=== PATIENT | female | born 1975 | race Asian ===

== ENCOUNTER → 2023-08-13 12:49 | Outpatient (CLI) | payer OTHER, SELFPAY ==
--- NOTE | ~2023-08-13 | MR_ITS ---
MRI of the left hip Clinical history: Pain Technique: Coronal T1-weighted, T2-weighted, and proton-density fat-sat images, and axial T1-weighted and proton-density fat-sat images were acquired through the pelvis. Coronal T2-weighted images and c oronal, axial, and sagittal proton-density fat-sat images were acquired through the left hip. Findings: There is no fracture, avascular necrosis, transient osteoporosis of either hip. Bone marrow signals the proximal femora and visualized pelvic bones are unremarkable. Bilateral hip joint spaces are preserved. There is probable moderate diffuse chondral malacia the left hip joint. There is mini mal chondral thinning of the right hip joint. Small left hip joint effusion present. No right hip joel nt effusion. No left acetabular labral tear evident. Visualized musculature about the pelvis and left hip is unremarkable. No muscle atrophy or edema. Vis ualized tendons are intact. No evidence for bursitis. No soft tissue mass or fluid collection seen. 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 Minimal chondromalacia of the right hip joint. Reviewed, dictated and finalized at location . ICE ORDER DISPATCHER
== END ==
PROVIDERS: PCP Nurse Practitioner; Visit Provider Nurse Practitioner
DX: M94.252 Chondromalacia, left hip (principal); M94.251 Chondromalacia, right hip; M25.452 Effusion, left hip
CPT/HCPCS: 73721

== ENCOUNTER 2024-10-29 15:31 | Outpatient (CLI) | payer OTHER, SELFPAY ==
--- NOTE | ~2024-10-29 | XR_ITS ---
EXAMINATION: XR chest 2V Exam Date/Time: 10/29/2024 16:15 HARDWOOD FLOOR REFINISHER HISTORY: OLECRANON Comparison: None. RESULT: Lines, tubes, and devices: None. Lungs and pleura: Low volumes with crowding, otherwise clear. Cardiomediastinal silhouette: Stable. Other: No acute osseous or upper abdominal finding. IMPRESSION: No acute cardiopulmonary process. Reviewed, dictated and finalized at location K. WOOD FLOOR REFINISHER
--- NOTE | ~2024-10-29 | XR_ITS ---
EXAM: XR elbow RT min 3V DATE: 10/29/2024 16:37 HISTORY: OLECRANON . COMPARISON: None available. FINDINGS: Normal mineralization. No fracture or dislocation. No lytic or blastic lesion. Joint space s are maintained. No erosion or periosteal change. Soft tissues within normal limits. IMPRESSION: No acute osseous finding in the right elbow. Reviewed, dictated and finalized at location K. ING PROCESS WORKER
--- NOTE | ~2024-10-29 | XR_ITS ---
EXAM: XR thoracic spine 3V DATE: 10/29/2024 16:37 HISTORY: OLECRANON . COMPARISON: None available. FINDINGS: Mild scoliosis Vertebral body alignment intact. Vertebral body heights preserved. Mild mult ilevel disc space narrowing and marginal osteophytosis. No traumatic malalignment or fracture. Visual ized lung parenchyma is clear. IMPRESSION: Mild multilevel degenerative disc disease. Reviewed, dictated and finalized at location K. TRY GRADER
--- OUTSIDE RECORDS SUMMARY | 2024-10-29 16:23 | XMS_ITS | Clinical Summary ---
Author Organization [facility] Address [address] [place] [address] Care Team Providers Care Elevator Repairer Apprentice Name Role Phone John Vincent MD Primary Care Provider + Christiano Kay MD Unavailable [phone] Allergies No known active allergies Medications levothyroxine (SYNTHROID) 112 mcg tablet Take 1 tablet (112 mcg total) by mouth tack picker before breakfast Active atorvastatin (LIPITOR) 20 mg tablet Take 1 tablet (20 mg total) by mouth daily 2 Active Ozempic 1 mg/dose (4 mg/3 mL) pen injector injection INJECT 1MG ONCE A WEEK FOR DIABETES 3 Active Mirena IUD 4 Active Active Problems Problem Noted Date Diagnosed Date Epigastric pain 04/15/2021 Assessment & Plan (04/15/2021 10:45 AM CDT): egd Gastroesophageal reflux disease 04/15/2021 Overview (04/15/2021): Added automatically from request for surgery [id number] Encounter for screening colonoscopy 04/15/2021 Overview (04/15/2021): Added automatically from request for surgery [id number] Fibrocystic breast changes of both breasts 05/30 Abnormal findings on diagnostic imaging of breas t 03/08/2015 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 (01/03/2017): High risk HPV infection Resolved Problems Problem Noted Date Diagnosed Date Resolved Date Menorrhagia with regular cycle 02/25/2020 03/26/2020 Overview (02/25/2020): Added automatically from request for surgery [id number] Encounters Date Type Department Care Team Description 09/29/2024 11:18 AM CUSTOMER CARE COORDINATOR - 09/29/2024 11:59 PM CUSTOMER CARE COORDINATOR Hospital Encounter [facility] - Breast Imaging [address] [place] [address] [address] [place] [address] Fibrocystic breast changes of both breasts Discharge Disposition: Discharge to home or self care 09/29/2024 11:15 AM CUSTOMER CARE COORDINATOR Office Visit [facility] [address] [place] [address] 8 [place] [address] Jamee Lagunas NP Fibrocystic breast changes of both breasts (Primary Dx); Encounter for screening mammogram for malignant neoplasm of breast from Last 3 Months Surgical History Surgery Date Site/Laterality Comments OTHER SURGICAL HISTORY 10/01/1992 - 09/30/1993 Abnormal pap: Cryotherapy of the cervix OTHER SURGICAL HISTORY HR HPV positive: HR HPV still positive 2011 SHOULDER SURGERY right shoulder surgery HYSTEROSCOPY W/ ENDOMETRIAL ABLATION 11/11/2019 Yadi DILATION AND CURETTAGE OF UTERUS 11/11/2019 COLONOSCOPY 05/26/2021 Medical History Medical History Date Comments History of abnormal cervical Papanicolaou smear 1992 Abnormal pap Hx Other Medical Mild hyperchole sterolemia Hx Other Medical 2010 HR HPV positive Disorder of thyroid Thyroid dise ase PONV (postoperative nausea and vomiting) Hypothyroidism GERD (gastroesophageal reflux disease) Diabetes (HCC) Family History Medical History Relation Name Comments Ureter Cancer Brother Coronary artery disease Father Gaye nary artery disease; Hypertension Father Hypertension; Thyroid disease Sister Thyroid dise ase; Relation Name Status Comments Brother Father Sister Social History Tobacco Use Types Packs/Day Years Used Date Smoking Tobacco: Never Smokeless Tobacco: Never Tobacco Cessation:Counseling Given: Not Answered Alcohol Use Standard Drinks/Week Comments No 0 (1 standard drink = 0.6 oz pur e alcohol) AUDIT-C Answer Date Recorded Q1: How often do you have a drink containing alc ohol? Monthly or less 04/15/2021 Q2: How many drinks containi ng alcohol do you have on a typical day when you are drinking? 1 or 2 04/15/2021 Q3: How often do you have si x or more drinks on one occasion? Never 04/15/2021 PHQ-2 Answer Date Recorded PHQ-2 Total Score (If total score is 3 or more points, staff should administer the PHQ-9) 0 02/04/2024 Comments No Sex and Gender Information Value Date Recorded Sex Assigned at Not on file Legal Sex Female 1:52 AM CUSTOMER CARE COORDINATOR Gender Identity Not on file Sexual Orientation Not on file Obstetrics History Para Term AB IAB SAB Ectopic Multiple Livin g Live Births 4 3 3 0 1 0 1 0 0 3 3 Date Outcome GA Total Labor Labor/2nd/3rd Weight Sex Type Anes PTL Inez A1 A5 Name Clin SAB 8 Term M Vag-S pont Living 0 Term M Vag-S pont Living 9 Term M Vag-S pont Living Last Filed Vital Signs Vital Sign Reading Time Taken Comments Blood Pressure 126/80 05/13/2024 8:25 AM CDT Pulse 70 05/26/2021 12:24 PM CDT Temperature 36.8 ??C (98.2 ??F) 05/26/2021 12:24 PM C DT Respiratory Rate 18 05/26/2021 12:24 PM CDT Oxygen Saturation 99% 05/26/2021 12:24 PM CDT Inhaled Oxygen Concentration - - Weight 98 kg (216 lb) 09/29/2024 11:35 AM CUSTOMER CARE COORDINATOR Height 160 cm (5' 2.99 ) 09/29/2024 11:35 AM CUSTOMER CARE COORDINATOR Body Mass Index 38.27 09/29/2024 11:35 AM CUSTOMER CARE COORDINATOR Plan of Treatment Health Maintenance Due Date Last Done Comments Hepatitis C Screening 1975 DTaP/Tdap/Td Vaccine (1 - Tdap) 1986 Hepatitis B Screening 1993 Covid-19 Vaccine (2 - season) 2024 07/11/2021 Influenza Vaccine (#1) 2024 Cervical Cancer Screening 02/03/20254, 01/15/2023, 12/30/2021, Additional history exists Depression Screening 02/03/2025 02/04/2024, 01/15/2023, 12/30/2021, Additional history exists Regular Well Visit/Exam 18-64 02/03/2025 02/04/2024, 01/15/2023, 12/30/2021, Additional history exists Breast Cancer Screening-Mammogram 09/29/2025 09/29/2024, 09/17/2023, 09/01/2022, Additional history exists Colon Cancer Screening-Colonoscopy 05/26/2031 05/26/2021 Pneumococcal vaccine <65 Aged Out No longer eligible based on patient's age to complete this topic Procedures Procedure Name Priority Date/Time Associated Diagnosis Comments SCREENING MAMMOGRAM BILATERAL W BRETT Schedule Routine, Read Routine (OP Routine) 09/29/2024 12:27 PM CUSTOMER CARE COORDINATOR Fibrocystic breast changes of both breasts PAP AND HPV, REFLEX TO HPV GENOTYPES Routine 02/04/2024 3:16 PM CDT Well woman exam COLONOSCOPY 05/26/2021 11:23 AM CDT from Last 3 Months or Most Recently Relevant to Health Maintenance Results * Screening Mammogram Bilateral W Brett (09/29/2024 12:27 PM CUSTOMER CARE COORDINATOR) Anatomical Region Laterality Modality Breast Bilateral Mammography Narrative 09/30/2024 9:12 AM CUSTOMER CARE COORDINATOR Mammogram Technique: Bilateral Digital Breast Tomosynthesis, Bilateral C-view 2D Screening mammogram. ??Views obtained: ??bilateral craniocaudal and bilateral mediolateral oblique. ??Computer Aided Detection was performed. Mammogram Findings: The present examination has been compared to prior imaging studies performed at [facility] on 08/19/2021, 09/01/2022 and 09/17/2023. The breasts are heterogeneously dense, which may obscure small masses. There is no suspicious abnormality in either breast. Impression: There is no mammographic evidence of malignancy. Annual screening mammography is recommended. If supplemental screening is desired, breast MRI would be recommended in this patient with heterogeneously dense breasts. OVERALL FINAL ASSESSMENT: BI-RADS CATEGORY 1: ??Negative. Procedure Note Noni Pabon MD - 09/30/2024 Mammogram Technique: Bilateral Digital Breast Tomosynthesis, Bilateral C-view 2D Screening mammogram. Views obtained: bilateral craniocaudal and bilateral mediolateral oblique. Computer Aided Detection was performed. Mammogram Findings: The present examination has been compared to prior imaging studies performed at [facility] on 08/19/2021, 09/01/2022 and 09/17/2023. The breasts are heterogeneously dense, which may obscure small masses. There is no suspicious abnormality in either breast. Impression: There is no mammographic evidence of malignancy. Annual screening mammography is recommended. If supplemental screeningis desired, breast MRI would be recommended in this patient with heterogeneously dense breasts. OVERALL FINAL ASSESSMENT: BI-RADS CATEGORY 1: Negative. Jamee Lagunas NP IMG MAMMO PROCEDURES Final Result * Pap and HPV, reflex to HPV Genotypes (02/04/2024 3:16 PM CDT) Clinical indication Comment [facility] - 01 Comment:NEGATIVE FOR INTRAEP ITHELIAL LESION OR MALIGNANCY. Specimen adequacy: Comment [facility] - 01 Comment: Satisfactory for evaluation. ??Endocervical and/or squamous metaplastic cells (endocervical component) are present. Clinician provided ICD10 Comment [facility] - 01 Comment:Z01.419 Performed by Comment [facility] - 01 Comment:Maryjane Arroyo, Cytote chnologist (ASCP) . . [facility] - 01 Note: Comment [facility] - 01 Comment: The Pap smear is a screening test designed to aid in the detection of premalignant and malignant conditions of the uterine cervix. ??It is not a diagnostic procedure and should not be used as the sole means of detecting cervical cancer. ??Both false-positive and false-negative reports do occur. Test methodology Comment [facility] - 01 Comment: This liquid based ThinPrep(R) pap test was screened with the use of an image guided system. HPV Aptima Negative Negative [facility] 02 Comment: This nucleic acid amplification test detects fourteen high-risk HPV types (16,18,31,33,35,39,45,51,52,56,58,59,66,68) without differentiation. HPV Genotype Reflex Comment [facility] - 01 Comment:Criteria not met, HP V Genotype not performed. Thin prep 02/04/2024 3:16 PM CDT 02/04/2024 Narrative [facility] - 02/07/2024 10:14 AM CDT Performed at: ??01 - [facility] [address] ??[id number] Research Methodologist: Lily Hodgson MD, Phone: ??[phone] Performed at: ??02 - [facility] ??[id number] Research Methodologist: Lily Hodgson MD, Phone: ??[phone] Specimen Comment: No. of containers..01 ThinPrep Vial Christiano Kay MD LAB CYTOLOGY ORDERABLES Fi nal Result [facility] - 01 [facility] 02 * COLONOSCOPY (05/26/2021 11:23 AM CDT) Anatomical Region Laterality Modality Other Narrative Procedure Note Say Cerrato MD - 05/26/2021 11:23 AM CDT [facility] Patient Name: Lisa Callahan Procedure Date: 05/26/2021 11:23 AM Date of : 1975 Admit Type: Outpatient Age: 46 Gender: Female Attending MD: Say Cerrato M.D. Room: [facility]COPY ROOM 2 Note Status: Finalized Patient Profile: Refer to note in patient chart for documentation of history and physical. Procedure: Colonoscopy Indications: Screening for colorectal malignant neoplasm, Thisis the patient's first colonoscopy Referring MD: John Vincent M.D. Providers: Say Cerrato M.D. Impression: - Hemorrhoids found on perianal exam. - The entire examined colon is normal. - No specimens collected. Recommendation: - Discharge patient to home. - Resume previous diet. - Continue present medications. - Repeat colonoscopy in 10 years for screening purposes. - Return to primary care physician as previously scheduled. Medicines: Propofol per Anesthesia Complications: No immediate complications. Estimated Blood Loss: Estimated blood loss: none. Procedure: Pre-Anesthesia Assessment: - This assessment was completed [Time ofAssessment] prior to the administration of sedation. The benefits, risks and alternatives of theprocedure and sedation were discussed and informed consentwas obtained. All questions were answered. Please referto the signed informed consent document in the medical record. The scope was passed under direct vision.The Colonoscope [id number] was introducedthrough the anus and advanced to the the cecum, identifiedby appendiceal orifice and ileocecal valve. The bowel preparation used was Miralax via single dose instruction. The bowel preparation used wasbisacodyl tablets via single dose instruction. Thecolonoscopy was performed without difficulty. The patient tolerated the procedure well. The quality of thebowel preparation was good. Findings: Hemorrhoids were found on perianal exam. The colon (entire examined portion) appeared normal. Electronically signed by Say Cerrato M.D. Say Cerrato M.D. 05/26/2021 11:59:16 AM Number of Addenda: 0 Note Initiated On: 05/26/2021 11:23 AM Procedure Code(s): --- Professional --- G0121, Colorectal cancer screening; colonoscopy on individual not meeting criteria for high risk Diagnosis Code(s): --- Professional --- K64.9, Unspecified hemorrhoids Z12.11, Encounter for screening for malignant neoplasm of colon CPT copyright 2019 [employer]. All rights reserved. The codes documented in this report are preliminary and upon head operator sulfide reviewmay be revised to meet current compliance requirements. Recognized by the [place] [employer] for promoting quality in endoscopy Say Cerrato MD ENDOSCOPY PROCEDURES Final Re sult from Last 3 Months or Most Recently Relevant to Health Maintenance Insurance [facility] [address] [facility] Advance Directives For more information, please contact: [phone] * Full Code (Latest Code Status on File) Date Activated Date Inactivated Comments 05/26/2021 9:57 AM 05/26/2021 4:46 PM * Full Code Date Activated Date Inactivated Comments 05/26/2021 9:57 AM 05/26/2021 9:57 AM Care Teams Elevator Repairer Apprentice Relationship Specialty Start Date End Date John Vincent MD [address] [place] [address] PCP - General Internal Medicine 06/10/19 Christiano Kay MD [address] [facility] [address] [place] [address] Private Tutor Obstetrics and Gynecology 03/10/20
--- OUTSIDE RECORDS SUMMARY | 2024-10-29 16:23 | XMS_ITS | Referral Summary ---
Author Organization [facility] Address [address] [place] [address] Care Team Providers Care Vice President Investor Relations Name Role Phone John Vincent MD Primary Care Provider + Christiano Kay MD Unavailable [phone] Encounters Date Type Department Care Team Description 09/29/2024 11:18 AM GEOGRAPHIC INFORMATION SYSTEMS ANALYST - 09/29/2024 11:59 PM GEOGRAPHIC INFORMATION SYSTEMS ANALYST Hospital Encounter [facility] - [facility] [address] [place] [address] Fibrocystic breast changes of both breasts Discharge Disposition: Discharge to home or self care 09/29/2024 11:15 AM GEOGRAPHIC INFORMATION SYSTEMS ANALYST Office Visit [facility] [address] [facility] [address] [place] [address] Jamee Lagunas NP Fibrocystic breast changes of both breasts (Primary Dx); Encounter for screening mammogram for malignant neoplasm of breast from Last 3 Months Allergies No known active allergies Medications levothyroxine (SYNTHROID) 112 mcg tablet Take 1 tablet (112 mcg total) by mouth motor equipment commanding officer before breakfast Active atorvastatin (LIPITOR) 20 mg [...] (04/15/2021): Added automatically from request for surgery [id number] Encounter for screening colonoscopy 04/15/2021 Overview (04/15/2021): Added automatically from request for surgery [id number] Fibrocystic breast changes of both breasts 05/30 Abnormal findings on diagnostic imaging of breas t 03/08/2015 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 (01/03/2017): High risk HPV infection Resolved Problems Problem Noted Date Diagnosed Date Resolved Date Menorrhagia with regular cycle 02/25/2020 03/26/2020 Overview (02/25/2020): Added automatically from request for surgery [id number] Social History Tobacco Use Types Packs/Day Years [...] on file Legal Sex Female 1:52 AM GEOGRAPHIC INFORMATION SYSTEMS ANALYST Gender Identity Not on file Sexual Orientation Not on file Last Filed Vital Signs Vital Sign Reading Time Taken Comments Blood Pressure 126/80 05/13/2024 8:25 AM CDT Pulse 70 05/26/2021 12:24 PM CDT Temperature 36.8 ??C (98.2 ??F) 05/26/2021 12:24 PM C DT Respiratory Rate 18 05/26/2021 12:24 PM CDT Oxygen Saturation 99% 05/26/2021 12:24 PM CDT Inhaled Oxygen Concentration - - Weight 98 kg (216 lb) 09/29/2024 11:35 AM GEOGRAPHIC INFORMATION SYSTEMS ANALYST Height 160 cm (5' 2.99 ) 09/29/2024 11:35 AM GEOGRAPHIC INFORMATION SYSTEMS ANALYST Body Mass Index 38.27 09/29/2024 11:35 AM GEOGRAPHIC INFORMATION SYSTEMS ANALYST Plan of Treatment Not on file Procedures Procedure Name Priority Date/Time Associated Diagnosis Comments SCREENING MAMMOGRAM BILATERAL W BRETT Schedule Routine, Read Routine (OP Routine) 09/29/2024 12:27 PM GEOGRAPHIC INFORMATION SYSTEMS ANALYST Fibrocystic breast changes of both breasts PAP AND HPV, REFLEX TO HPV GENOTYPES Routine 02/04/2024 3:16 PM CDT Well woman exam COLONOSCOPY 05/26/2021 11:23 AM CDT from Last 3 Months or Most Recently Relevant to Health Maintenance Results * Screening Mammogram Bilateral W Brett (09/29/2024 12:27 PM GEOGRAPHIC INFORMATION SYSTEMS ANALYST) Anatomical Region Laterality Modality Breast Bilateral Mammography Narrative 09/30/2024 9:12 AM GEOGRAPHIC INFORMATION SYSTEMS ANALYST Mammogram Technique: Bilateral Digital Breast Tomosynthesis, Bilateral C-view 2D Screening mammogram. ??Views obtained: ??bilateral craniocaudal and bilateral mediolateral oblique. ??Computer Aided Detection was performed. Mammogram Findings: The present examination has been compared to prior imaging studies performed at [facility] on 08/19/2021, 09/01/2022 and 09/17/2023. The breasts are heterogeneously dense, which may obscure small masses. There is no suspicious abnormality in either breast. Impression: There is no mammographic evidence of malignancy. Annual screening mammography is recommended. If supplemental screening is desired, breast MRI would be recommended in this patient with heterogeneously dense breasts. OVERALL FINAL ASSESSMENT: BI-RADS CATEGORY 1: ??Negative. Procedure Note Noni Paobn MD - 09/30/2024 Mammogram Technique: Bilateral Digital Breast Tomosynthesis, Bilateral C-view 2D Screening mammogram. Views obtained: bilateral craniocaudal and bilateral mediolateral oblique. Computer Aided Detection was performed. Mammogram Findings: The present examination has been compared to prior imaging studies performed at [facility] on 08/19/2021, 09/01/2022 and 09/17/2023. The breasts [...] Performed by Comment [facility] - 01 Comment:Maryjane Arroyo Cytote chnologist (ASCP) . . [facility] - [...] AM CDT Performed at: ??01 - [facility] [address] ??[id number] Machine Maintenance Technician: Lily Hodgson MD, Phone: ??[phone] Performed at: ??02 - [facility] [address] ??[id number] Machine Maintenance Technician: Lily Hodgson MD, Phone: ??[phone] Specimen Comment: No. of containers..01 ThinPrep Vial Christiano Kay MD LAB CYTOLOGY ORDERABLES Fi nal Result [facility] - 01 [facility] 02 * COLONOSCOPY (05/26/2021 11:23 AM CDT) Anatomical Region Laterality Modality Other Narrative Procedure Note Say Cerrato MD - 05/26/2021 11:23 AM CDT [facility] Patient Name: Lisa Callahan Procedure Date: 05/26/2021 11:23 AM Date of : 1975 Admit Type: Outpatient Age: 46 Gender: Female Attending MD: Say Cerrato M.D. Room: [facility] ENDOSCOPY ROOM 2 Note Status: Finalized Patient [...] scope was passed under direct vision.The Colonoscope [id number] was introducedthrough the anus and advanced to [...] portion) appeared normal. Electronically signed by Say R. Blossom, M.D. Say Cerrato M.D. 05/26/2021 11:59:16 AM Number of Addenda: 0 Note Initiated On: 05/26/2021 11:23 AM Procedure Code(s): --- Professional --- G0121, Colorectal cancer screening; colonoscopy on individual not meeting criteria for high risk Diagnosis Code(s): --- Professional --- K64.9, Unspecified hemorrhoids Z12.11, Encounter for screening for malignant neoplasm of colon CPT copyright 2019 [place] [employer]. All rights reserved. The codes documented in this report are preliminary and upon position classification manager reviewmay be revised to meet current compliance requirements. Recognized by the [place] [employer] for promoting quality in endoscopy Say Cerrato MD ENDOSCOPY PROCEDURES Final Re sult from Last 3 Months or Most Recently Relevant to Health Maintenance Insurance [facility] HMO/PPO Address: [facility] [address] [place] [address] [facility] HMO/PPO Address: [address] [address] [place] [address] [facility] HMO/PPO Address: [address] [address] [place] [address] Advance Directives For more information, please contact: [phone] * Full Code (Latest Code Status on File) Date Activated Date Inactivated Comments 05/26/2021 9:57 AM 05/26/2021 4:46 PM * Full Code Date Activated Date Inactivated Comments 05/26/2021 9:57 AM 05/26/2021 9:57 AM Care Teams Vice President Investor Relations Relationship Specialty Start Date End Date John Vincent MD [address] [facility] [place] [address] PCP - General Internal Medicine 06/10/19 Christiano Kay MD [address] [place] [address] DR [facility] [place] [address] Motor Vehicle Compliance Analyst Obstetrics and Gynecology 03/10/20
== END 2024-10-29 15:32 | disposition home or self-care (01) ==
PROVIDERS: PCP Nurse Practitioner; Visit Provider Nurse Practitioner Adult Health
DX: M51.34 Other intervertebral disc degeneration, thoracic region (principal); M46.1 Sacroiliitis, not elsewhere classified; M53.86 Other specified dorsopathies, lumbar region; M54.50 Low back pain, unspecified; Z00.00 Encounter for general adult medical examination without abnormal findings; Z00.01 Encounter for general adult medical examination with abnormal findings
CPT/HCPCS: 71046; 72072; 73080